=== PATIENT | male | born 1955 | race Caucasian/White ===

== ENCOUNTER 2019-01-07 13:47 | Inpatient (IN) ==
--- NOTE | 2019-01-07 14:52 | Emergency Department Note ---
ED Disposition Clinical Impression: Diverticulitis large intestine, Diarrhea Disposition: Admitted as Observation Condition on Discharge: Fair Referrals: Provider,Referral, [Primary Care Provider] - Time of Disposition: 15:54 - Critical Care Critical Care Time: No Attestation: On , the high probability of a clinically significant, sudden or life threatening deterioration of the following system(s) required my full and direct attention, intervention and personal management. The time I documented below is in addition to time spent performing reported procedures but includes the following listed in this critical care notation. Medical Decision Making - Medical Records Medical records reviewed: Yes: I reviewed the patient's medical records. - Viktor Inquiry Pt receiving controlled substance: No Viktor was queried for this patient: No Vital Signs: 01/07/19 13:47 01/07/19 14:26 01/07/19 15:00 Temperature 103.0 F H 103.0 F H Temperature Source Rectal Rectal Pulse Rate [Right Brachial] 120 H 120 H Respiratory Rate 18 16 Blood Pressure [Right Arm] 134/88 135/74 Blood Pressure Mean [Right Arm] 103 94 Blood Pressure Source [Right Arm] Automatic Cuff Automatic Cuff Blood Pressure Position [Right Arm] Sitting Supine 02 Sat by Pulse Oximetry 99 99 93 L Oxygen Delivery Method Room Air Room Air Room Air 01/07/19 15:48 Temperature Temperature Source Pulse Rate [Right Brachial] 124 H Respiratory Rate Blood Pressure [Right Arm] 154/83 H Blood Pressure Mean [Right Arm] 106 Blood Pressure Source [Right Arm] Automatic Cuff Blood Pressure Position [Right Arm] Supine 02 Sat by Pulse Oximetry 94 L Oxygen Delivery Method Room Air - Lab Data Lab results reviewed: Yes: I reviewed the patient's lab results. Lab Results 01/07/19 14:23: WBC 16.4 H, RBC 4.74, Hgb 14.1, Hct 43.8, MCV 92.4, MCH 29.8, MCHC 32.2, RDW 14.4, Plt Count 737 H, MPV 6.9 L, Neut % (Auto) 77.9, Lymph % (Auto) 13.4, [place] % (Auto) 7.6, Eos % (Auto) 0.7, Baso % (Auto) 0.4, Neut # (Auto) 12.7 H, Lymph # (Auto) 2.2, [place] # (Auto) 1.3 H, Eos # (Auto) 0.1, Baso # (Auto) 0.1, Total Counted 100, Neutrophils % (Manual) 71, Band Neutrophils % 4.0, Lymphocytes % (Manual) 17, Monocytes % (Manual) 7, Eosinophils % (Manual) 1, Platelet Estimate Moderate increase, Hypochromasia 1+ 01/07/19 14:23: Sodium 138, Potassium 3.0 L, Chloride 101, Carbon Dioxide 23, Anion Gap 17.0 H, BUN 22 H, Creatinine 1.13, Estimated Creat Clear 117, Estimated GFR 65, Est GFR ( Amer) 79, Glucose 116 H, Calcium 9.0, Total Bilirubin 1.0, AST 29, ALT 32, Alkaline Phosphatase 96, Total Creatine Kinase 149, Troponin I < 0.02, Total Protein 7.2, Albumin 2.1 L, Globulin 5.1 H, Albumin/Globulin Ratio 0.4 L, Amylase 41, Lipase 221 01/07/19 14:23: B-Natriuretic Peptide 54 01/07/19 14:23: Lactate 1.8 01/07/19 14:23: Urine Color Yellow, Urine Appearance Clear, Urine pH 6.5, Ur Specific [place] 1.015, Urine Protein 1+, Urine Glucose (UA) Negative, Urine Ketones Trace, Urine Blood Negative, Urine Nitrate Negative, Urine Bilirubin Negative, Urine Urobilinogen 2.0, Ur Leukocyte Esterase Negative, Urine RBC Occasional, Urine WBC Occasional, Ur Squamous Epith Cells None, Urine Bacteria Trace Result diagrams: 01/07/19 14:23 01/07/19 14:23 Orders (Tests/Meds): ED MEDICATIONS Generic Name Dose Route Start Last Admin Trade Name Nicole PRN Reason Stop Dose Admin Metronidazole 500 mg in 100 mls @ 100 mls/hr 01/07/19 16:00 01/07/19 16:04 Flagyl 500mg/100ml Ivpb IV 01/21/19 15:59 100 mls/hr Q8H NEHEMIAS Administration Protocol Piperacillin Sod/Tazobactam 100 mls @ 200 mls/hr 01/07/19 16:00 Sod 4.5 gm/ Sodium Chloride IV 01/21/19 15:59 Q8H NEHEMIAS Protocol ORDERS Category Date Time Status Blood Culture Stat Micro 01/07/19 14:23 Received General Adult HPI - General Chief complaint: Weakness Stated complaint: weakness Time Seen by Provider: 01/07/19 13:50 Mode of Arrival: EMS Source of Information: Patient, EMS Limitations: No Limitations Description of Symptoms (Recalled from ER Triage Doc. by RN): Pt was found by a friend laying on his couch. EMS reports apparently he has been on the couch for approx a week. Pt is covered in liquid stool. Legs are candace, swollen. Botttom is candace, scrotum is candace and discolored. Pt is A&O and can answer questions, advises he has been sick for a while - History of Present Illness HPI narrative: c/o abdominal pain for weeks, diarrhea excessive for two weeks. Too weak to stand, found lying on couch with stool and urine soaked clothes. Skin is markedly broken down in buttocks, perineum,scrotum. Patient complains of abdominal pain - Related Data Home Medications Medication Instructions Recorded Confirmed No Known Home Medications 11/21/17 01/07/19 Allergies Allergy/AdvReac Type Severity Reaction Status Date / Time No Known Allergies Allergy Verified 11/21/17 09:42 [facility] History - Hepatitis A Screen Drug use history?: No High risk sexual behaviors?: No History of sexually transmitted infection?: No Currently employed?: No Childcare worker?: No Do you have indoor plumbing?: Yes Do you have electricity?: Yes Attestation statement:: This patient has been screened for Hepatitis A risk factors. I have reviewed the patient's past medical history: Yes Medical History: Reports:: Diabetes Mellitus Type 2 Denies:: Diabetes Mellitus Type 1 - Social History Smoking Status: Never smoker Alcohol Intake: never Alcohol Intake Frequency:: holidays/special occasions only ROS Obtained: Yes All systems reviewed & no additional complaints - Constitutional Constitutional: Reports fever(s) - Cardiovascular Cardiovascular: Denies chest pain, Denies chest pain at rest, Denies diaphoresis - Respiratory Respiratory: No system reviewed and no additional complaints, except as docu, No chest congestion, No dyspnea, No dyspnea on exertion - Gastrointestinal Gastrointestingal: Reports: abdominal pain, diarrhea - Genitourinary Male Genitourinary: Reports difficulty with ejaculations, Reports hematuria - Musculoskeletal Musculoskeletal: Reports muscle weakness, Reports muscle aches, Reports numbness - Integumentary/Breasts Skin/Breast: Reports redness, Reports skin pain, Reports wounds - Neurologic Neurologic: Denies headache(s), Reports weakness - Hematologic/Lymphatic Henatologic/Lymphatic: Denies easy bleeding, Denies easy bruising Physical Exam - General General appearance: alert, obese, other (febrile, covered in stool) - Head Head exam: atraumatic - Eye Eye exam: Present: normal appearance, PERRL, EOMI - Neck Neck exam: Present: normal inspection, full ROM, trachea midline. Absent: meningismus, lymphadenopathy - Chest Chest inspection: Present: normal inspection, symmetric chest wall rise. Absent: tenderness - Respiratory Respiratory exam: Present: normal lung sounds bilaterally. Absent: respiratory distress - Cardiovascular Cardiovascular exam: Present: regular rate, normal rhythm. Absent: JVD - Abdominal Exam Abdominal exam: Present: soft, tenderness, guarding Abdominal tenderness: Present: LLQ - Back Exam Back exam: Absent: normal inspection - Neurological Exam Neurological exam: Present: alert, oriented X3 - Skin Skin exam: Present: other (severe breakdown of scrotal skin, perineal skin, buttocks ..covered in stool). Absent: warm, dry, intact
[2019-01-07 14:59] LABS: Alanine Aminotransferase 32 U/L (12-78); Albumin Level 2.1 gm/dL (3.4-5.0); Albumin/Globulin Ratio 0.4 (1.1-1.8); Alkaline Phosphatase 96 U/L (46-116); Amylase 41 U/L (25-115); Aspartate Amino Transferase 29 U/L (15-37); Blood Urea Nitrogen 22 mg/dL (7-18); Carbon Dioxide 23 mmol/L (21.0-32.0); Chloride 101 mmol/L (98-107); Creatine Kinase 149 U/L (39-308); Globulin 5.1 gm/dl (1.3-3.2); Glucose 116 mg/dL (74-106); Sodium 138 mmol/L (136-145); Total Protein,Serum 7.2 gm/dL (6.4-8.2)
[2019-01-07 15:10] LABS: Hematocrit 43.8 % (42.0-52.0); Hemoglobin 14.1 g/dL (14.1-18.0); Mean Corpuscular HGB Conc 32.2 g/dL (31.8-35.4); Mean Corpuscular Volume 92.4 fl (80-94); Mean Platelet Volume 6.9 fl (7.4-10.4); Red Blood Count 4.74 M/mm3 (4.60-6.20); Red Cell Distribution Width 14.4 % (11.5-17.5); White Blood Count 16.4 K/mm3 (4.8-10.8)
[2019-01-07 15:11] LABS: Basophils # 0.1 K/mm3 (0-0.2); Basophils % 0.4 % (0.1-2.0); Eosinophils # 0.1 K/mm3 (0.0-0.4); Eosinophils % 0.7 % (0.1-12.0); Lymphocytes # 2.2 K/mm3 (0.7-4.5); Lymphocytes % 13.4 % (10-50); Monocytes # 1.3 K/mm3 (0.1-1.0); Monocytes % 7.6 % (1.7-9.3); Neutrophils # 12.7 K/mm3 (1.8-7.8); Neutrophils % 77.9 % (37.0-80.0)
[2019-01-07 15:12] LABS: Platelet Count 737 K/mm3 (142-424)
[2019-01-07 15:25] LABS: Eosinophils % 1 % (0-3); Hypochromasia 1+; Lymphocytes % 17 % (10-50); Monocytes % 7 % (2-9); Neutrophils % 71 % (42-76); Total Cells Counted 100
[2019-01-07 15:47] LABS: Microscopic, Urine URINE MICROSCOPIC (MICROSCOPIC)
[2019-01-07 15:48] LABS: Appearance,Urine CLEAR (Clear); Blood, Urine Negative (Negative); Color,Urine YELLOW (Yellow); Glucose,Urine (UA) Negative (Negative); Ketones,Urine TRACE (Negative); Leukocyte Esterase,Urine Negative (Negative); PH,Urine 6.5 (5.0-8.5); Protein,Urine 1+ (Negative); Specific Gravity, Urine 1.015 (1.005-1.030)
[2019-01-07 15:54] LABS: Bilirubin,Urine Negative (Negative)
[2019-01-07 15:55] LABS: Bacteria,Urine Trace /lpf; RBC,Urine Occasional #/hpf (0-3); WBC,Urine Occasional #/hpf (0-3)
--- NOTE | 2019-01-07 18:15 | History & Physical Report ---
*Admission Date: 01/07/19 *Chief complaint: 6 weeks of diarrhea *History of present illness: 63-year-old white male with history of diabetes but no recent medical care or medications over the past several years, who was brought to the emergency department by EMS after being called because of concerns about the patient's 86-year-old mother and the patient who were both unable to care for themselves. The patient himself reports 6 weeks of diarrhea with incontinence of stools and being unable to stand up over the past couple of weeks. EMS found him covered in fecal material, and it took approximately 1-1/2 hours of work with 3 paramedics to extricate him from his couch and get him suitably clean to to ride in the ambulance to the hospital. In the hospital emergency department he was found to have fever, leukocytosis, evidence of scrotal cellulitis, significant skin breakdown around his rectum and scrotum, and was found to have evidence of diverticulitis with abdominal tenderness on physical exam confirmed by CT scan. Patient is placed on IV fluids, potassium replacement therapy for hypokalemia, broad-spectrum antibiotics and admitted to hospital. Of note the patient's mother was emergently admitted to a local long-term care facility. [facility] History I have reviewed the patient's past medical history: Yes Medical History: Reports:: Diabetes Mellitus Type 2, Hypertension Denies:: Cancer, Diabetes Mellitus Type 1, MRSA *Have you ever received a pneumonia vaccine?: No *Have you received a flu vaccine this season?: No Comment:: Morbid obesity, medical noncompliance Laterality Cases: Bilateral: Tonsillectomy Other Surgeries: Yes: Colonoscopy, Hernia Repair Amputation: No - *Social History Educational Level: Completed College Smoking Status: Never smoker Alcohol Intake: never Alcohol Intake Frequency:: holidays/special occasions only *Occupational Status:: retired Housing: house Household Members: family *Travel in the last 8 weeks: None - Psychiatric History Expresses thoughts of harming self/others: None Suicide Plan Description: No Plan Family Hx:: Unable to obtain, No significant family history Review of Systems - Review of Systems Review of systems:: pertinent systems reviewed and negative unless documented below - Constitutional Reports anorexia, Reports body ache(s), Reports fatigue, Reports fever(s) - Eyes Denies blind spots, Denies dry eyes - ENT Reports poor balance, Reports dizziness, Reports dry mouth, Reports difficulty swallowing, Denies abnormal hearing - *Cardiovascular Reports lightheadedness, Denies chest pain, Denies excessive sweating, Denies shortness of breath - *Respiratory Denies change in phlegm color, Denies chest congestion, Denies shortness of breath with activity, Denies excessive phlegm production - *Gastrointestinal Reports abdominal pain, Reports change in stools, Reports excessive passing of gas, Reports incontinent of stools, Reports nausea, Reports vomiting, Denies black, tarry stools - *Genitourinary Denies difficulty urinating - *Musculoskeletal Reports abnormal walking, Reports joint swelling, Reports limited joint movement, Reports muscle weakness, Reports body aches - Integumentary/Breasts Denies acne, Denies change in skin color - *Neurologic Reports numbness, Reports weakness, Denies headache(s) Meds Home Medications Medication Instructions Recorded Confirmed Type No Known Home Medications 11/21/17 01/07/19 History Allergies Allergy/AdvReac Type Severity Reaction Status Date / Time No Known Allergies Allergy Verified 11/21/17 09:42 Exam Vital signs and Labs for Last 24 Hours: Temp Pulse Resp BP Pulse Ox 98.1 F 116 H 16 121/71 94 L 01/07/19 17:53 01/07/19 17:53 01/07/19 17:53 01/07/19 17:53 01/07/19 17:53 Laboratory Results - last 24 hr 01/07/19 14:23: WBC 16.4 H, RBC 4.74, Hgb 14.1, Hct 43.8, MCV 92.4, MCH 29.8, MCHC 32.2, RDW 14.4, Plt Count 737 H, MPV 6.9 L, Neut % (Auto) 77.9, Lymph % (Auto) 13.4, [place] % (Auto) 7.6, Eos % (Auto) 0.7, Baso % (Auto) 0.4, Neut # (Auto) 12.7 H, Lymph # (Auto) 2.2, [place] # (Auto) 1.3 H, Eos # (Auto) 0.1, Baso # (Auto) 0.1, Total Counted 100, Neutrophils % (Manual) 71, Band Neutrophils % 4.0, Lymphocytes % (Manual) 17, Monocytes % (Manual) 7, Eosinophils % (Manual) 1, Platelet Estimate Moderate increase, Hypochromasia 1+ 01/07/19 14:23: Sodium 138, Potassium 3.0 L, Chloride 101, Carbon Dioxide 23, Anion Gap 17.0 H, BUN 22 H, Creatinine 1.13, Estimated Creat Clear 117, Estimated GFR 65, Est GFR ( Amer) 79, Glucose 116 H, Calcium 9.0, Total Bilirubin 1.0, AST 29, ALT 32, Alkaline Phosphatase 96, Total Creatine Kinase 149, Troponin I < 0.02, Total Protein 7.2, Albumin 2.1 L, Globulin 5.1 H, Albumin/Globulin Ratio 0.4 L, Amylase 41, Lipase 221 01/07/19 14:23: B-Natriuretic Peptide 54 01/07/19 14:23: Lactate 1.8 01/07/19 14:23: Urine Color Yellow, Urine Appearance Clear, Urine pH 6.5, Ur Specific [place] 1.015, Urine Protein 1+, Urine Glucose (UA) Negative, Urine Ketones Trace, Urine Blood Negative, Urine Nitrate Negative, Urine Bilirubin Negative, Urine Urobilinogen 2.0, Ur Leukocyte Esterase Negative, Urine RBC Occasional, Urine WBC Occasional, Ur Squamous Epith Cells None, Urine Bacteria Trace I & O for Last 24 hours: Intake & Output 01/05/19 01/06/19 01/07/19 01/08/19 11:59 11:59 11:59 11:59 Intake Total 23.333 / 23.333 Balance 23.333 / 23.333 Weight 285 lb 1 oz Narrative: Patient is extremely disheveled, poor dental hygiene. Unkempt cruz and hair, covered with the residual of liquid/now dried fecal material on his hands, around his scrotum and buttocks in spite of multiple baths per ER and nursing staff. Scrotal tissue is macerated and irritated. Bauer catheter is draining clear light yellow urine. He does not appear to have yeast around his scrotum. Anterior lung zamorano are clear, heart rate regular, no murmurs. Abdomen soft but tender in the left lower quadrant with no rebound or guarding. No skin rash noted. Distal extremities are warm and well-perfused, he has 1+ pedal edema. Neurologically he is very weak but able to move extremities well with 4/5 strength, cranial nerves are intact. Assessment and Plan (1) Hypokalemia Current visit: Yes Status: Acute Category: Medical Code(s): E87.6 - Hypokalemia Replace with p.o. potassium, follow tomorrow (2) Diabetes mellitus type 2 in obese Current visit: Yes Status: Acute Category: Medical Code(s): E11.69 - Type 2 diabetes mellitus with other specified complication; E66.9 - Obesity, unspecified Glucose levels in ER fairly controlled, start low intensity sliding scale as needed. (3) Morbid obesity Current visit: Yes Status: Acute Category: Medical Code(s): E66.01 - Morbid (severe) obesity due to excess calories Complicates all aspects of his care. (4) Physical deconditioning Current visit: Yes Status: Acute Category: Medical Code(s): R53.81 - Other malaise PT.OT consult... may need LTC placement (5) Diarrhea Current visit: Yes Status: Acute Qualifiers: Diarrhea type: infectious Qualified Code(s): A09 - Infectious gastroenteritis and colitis, unspecified Category: Medical Code(s): R19.7 - Diarrhea, unspecified Start abx for diverticulitis. Follow up clinically. (6) Diverticulitis large intestine Current visit: Yes Status: Acute Category: Medical Code(s): K57.32 - Diverticulitis of large intestine without perforation or abscess without bleeding IV abx. (7) Scrotal abscess Current visit: No Status: Acute Category: Medical Code(s): N49.2 - Inflammatory disorders of scrotum IV abx - hygiene. CT negative for actual abscess.
[2019-01-08 07:44] LABS: Basophils % 0.2 % (0.1-2.0); Eosinophils % 0.3 % (0.1-12.0); Hematocrit 40.4 % (42.0-52.0); Hemoglobin 13.2 g/dL (14.1-18.0); Lymphocytes # 0.8 K/mm3 (0.7-4.5); Lymphocytes % 6.6 % (10-50); Mean Corpuscular HGB Conc 32.6 g/dL (31.8-35.4); Mean Corpuscular Volume 94.6 fl (80-94); Monocytes # 0.4 K/mm3 (0.1-1.0); Monocytes % 3.6 % (1.7-9.3); Neutrophils # 10.7 K/mm3 (1.8-7.8); Neutrophils % 89.3 % (37.0-80.0); Platelet Count 640 K/mm3 (142-424); Red Blood Count 4.27 M/mm3 (4.60-6.20); Red Cell Distribution Width 14.5 % (11.5-17.5)
[2019-01-08 07:45] LABS: Anion Gap 16.9 mEq/L (5-15); Calcium 8.7 mg/dL (8.5-10.1)
--- NOTE | 2019-01-08 08:22 | Progress Note ---
Internal Medicine - PN: Subj *Date: 01/08/19 *Time: 08:20 Interval history: Patient overall feels somewhat better. Continues to have some gas and is incontinent of liquid feces. Exam Vital signs and Labs for Last 24 Hours: Temp Pulse Resp BP Pulse Ox 97.7 F 84 16 116/72 93 L 01/08/19 07:46 01/08/19 07:46 01/08/19 07:46 01/08/19 07:46 01/08/19 07:46 Laboratory Results - last 24 hr 01/07/19 14:23: WBC 16.4 H, RBC 4.74, Hgb 14.1, Hct 43.8, MCV 92.4, MCH 29.8, MCHC 32.2, RDW 14.4, Plt Count 737 H, MPV 6.9 L, Neut % (Auto) 77.9, Lymph % (Auto) 13.4, [place] % (Auto) 7.6, Eos % (Auto) 0.7, Baso % (Auto) 0.4, Neut # (Auto) 12.7 H, Lymph # (Auto) 2.2, [place] # (Auto) 1.3 H, Eos # (Auto) 0.1, Baso # (Auto) 0.1, Total Counted 100, Neutrophils % (Manual) 71, Band Neutrophils % 4.0, Lymphocytes % (Manual) 17, Monocytes % (Manual) 7, Eosinophils % (Manual) 1, Platelet Estimate Moderate increase, Hypochromasia 1+ 01/07/19 14:23: Sodium 138, Potassium 3.0 L, Chloride 101, Carbon Dioxide 23, Anion Gap 17.0 H, BUN 22 H, Creatinine 1.13, Estimated Creat Clear 117, Estimated GFR 65, Est GFR ( Amer) 79, Glucose 116 H, Calcium 9.0, Total Bilirubin 1.0, AST 29, ALT 32, Alkaline Phosphatase 96, Total Creatine Kinase 149, Troponin I < 0.02, Total Protein 7.2, Albumin 2.1 L, Globulin 5.1 H, Albumin/Globulin Ratio 0.4 L, Amylase 41, Lipase 221 01/07/19 14:23: B-Natriuretic Peptide 54 01/07/19 14:23: Lactate 1.8 01/07/19 14:23: Urine Color Yellow, Urine Appearance Clear, Urine pH 6.5, Ur Specific [place] 1.015, Urine Protein 1+, Urine Glucose (UA) Negative, Urine Ketones Trace, Urine Blood Negative, Urine Nitrate Negative, Urine Bilirubin Negative, Urine Urobilinogen 2.0, Ur Leukocyte Esterase Negative, Urine RBC Occasional, Urine WBC Occasional, Ur Squamous Epith Cells None, Urine Bacteria Trace 01/07/19 21:20: POC Glucose 111 H 01/08/19 06:01: POC Glucose 121 H 01/08/19 07:03: WBC 12.0 H D, RBC 4.27 L, Hgb 13.2 L, Hct 40.4 L, MCV 94.6 H, MCH 30.9, MCHC 32.6, RDW 14.5, Plt Count 640 H, MPV 7.0 L, Neut % (Auto) 89.3 H, Lymph % (Auto) 6.6 L, [place] % (Auto) 3.6, Eos % (Auto) 0.3, Baso % (Auto) 0.2, Neut # (Auto) 10.7 H, Lymph # (Auto) 0.8, [place] # (Auto) 0.4, Eos # (Auto) 0.0, Baso # (Auto) 0.0 01/08/19 07:03: Sodium 139, Potassium 2.9 L*, Chloride 103, Carbon Dioxide 22, Anion Gap 16.9 H, BUN 21 H, Creatinine 1.16, Estimated Creat Clear 121, Estimated GFR 63, Est GFR ( Amer) 76, Glucose 137 H, Calcium 8.7 I & O for Last 24 hours: Intake & Output 01/05/19 01/06/19 01/07/19 01/08/19 11:59 11:59 11:59 11:59 Intake Total 1596.333 / 1596.333 Output Total 800 / 800 Balance 796.333 / 796.333 Weight 296 lb 5 oz Narrative: Patient is awake, talkative. Appears better hydrated. Lungs are clear. Heart rate regular. Abdomen remains slightly tender in the lower quadrants but improving. Nursing is done a very nice job of cleaning up the patient after his really incredibly deplorable conditions were found at his home. Oropharynx moist, poor hygiene again noted, however oral tissues are clear. No edema in the extremities. Able to move extremities well but is weak. Assessment and Plan (1) Hypokalemia Current visit: Yes Status: Acute Category: Medical Code(s): E87.6 - Hypokalemia Increased dose of oral potassium today. Monitor carefully. (2) Diabetes mellitus type 2 in obese Current visit: Yes Status: Acute Category: Medical Code(s): E11.69 - Type 2 diabetes mellitus with other specified complication; E66.9 - Obesity, unspecified (3) Morbid obesity Current visit: Yes Status: Acute Category: Medical Code(s): E66.01 - Morbid (severe) obesity due to excess calories Complicates all aspects of his care. (4) Physical deconditioning Current visit: Yes Status: Acute Category: Medical Code(s): R53.81 - Other malaise Will need PT/OT evaluation. I anticipate that he will need long-term care (5) Diarrhea Current visit: Yes Status: Acute Qualifiers: Diarrhea type: infectious Qualified Code(s): A09 - Infectious gastroenteritis and colitis, unspecified Category: Medical Code(s): R19.7 - Diarrhea, unspecified Obtain PCR specimen (6) Diverticulitis large intestine Current visit: Yes Status: Acute Category: Medical Code(s): K57.32 - Diverticulitis of large intestine without perforation or abscess without bleeding Clinically improving. Continue current antibiotic therapy (7) Scrotal abscess Current visit: No Status: Acute Category: Medical Code(s): N49.2 - Inflammatory disorders of scrotum
[2019-01-08 08:54] LABS: Lymphocytes % 11 % (10-50); Monocytes % 4 % (2-9); Neutrophils % 83 % (42-76); RBC Morphology Normal; Total Cells Counted 100
--- NOTE | 2019-01-08 13:25 | Pharmacy Consult Notes ---
[facility] Pharmacy VTE Monitoring - Patient Demographics Admission date: 01/07/19 Report Date: 01/08/19 Time: 13:24 Allergies/Adverse Reactions: Patient Allergies No Known Allergies Allergy (Verified 11/21/17 09:42) Height: 1.83 m Weight: 134.405 kg Patient Problems: Current Active Problems Diverticulitis large intestine (Acute) Diarrhea (Acute) Hypokalemia (Acute) Diabetes mellitus type 2 in obese (Acute) Morbid obesity (Acute) Physical deconditioning (Acute) - VTE Risk Labs: VTE Related Lab Results Hgb 13.2 g/dL (14.1-18.0) L 01/08/19 07:03 Hct 40.4 % (42.0-52.0) L 01/08/19 07:03 Plt Count 640 K/mm3 (142-424) H 01/08/19 07:03 BUN 21 mg/dL (7-18) H 01/08/19 07:03 Creatinine 1.16 mg/dL (0.70-1.30) 01/08/19 07:03 Estimated Creat Clear 121 mL/min (50-200) 01/08/19 07:03 VTE Score: 3 VTE Risk Level: Low Risk - Prophylaxis VTE Prophylaxis Ordered?: Yes Types of VTE Prophylaxis: TEDS Knee High Location of Applied Device: Bilateral Lower Extremeties - VTE Diagnosis Confirmed Treatment or plan recommended: Continue Current Treatment
[2019-01-09 06:16] LABS: Basophils % 0.2 % (0.1-2.0); Eosinophils % 0.1 % (0.1-12.0); Hematocrit 38.5 % (42.0-52.0); Lymphocytes # 1.2 K/mm3 (0.7-4.5); Lymphocytes % 7.6 % (10-50); Mean Corpuscular HGB Conc 31.3 g/dL (31.8-35.4); Mean Corpuscular Volume 93.9 fl (80-94); Mean Platelet Volume 7.7 fl (7.4-10.4); Monocytes # 0.9 K/mm3 (0.1-1.0); Monocytes % 5.8 % (1.7-9.3); Neutrophils # 12.9 K/mm3 (1.8-7.8); Neutrophils % 86.3 % (37.0-80.0); Platelet Count 595 K/mm3 (142-424); Red Cell Distribution Width 14.5 % (11.5-17.5); White Blood Count 14.9 K/mm3 (4.8-10.8)
[2019-01-09 06:31] LABS: Anion Gap 17.1 mEq/L (5-15); Calcium 8.5 mg/dL (8.5-10.1)
[2019-01-09 06:57] LABS: Lymphocytes % 13 % (10-50); Neutrophils % 74 % (42-76); RBC Morphology Normal; Total Cells Counted 100
--- NOTE | 2019-01-09 08:05 | Progress Note ---
Internal Medicine - PN: Subj *Date: 01/09/19 *Time: 08:02 Interval history: Patient feels somewhat better, has tolerated a low residue diet, continues to have frequent liquid stools. PCR from diarrhea shows E. coli. Blood and urine cultures are still pending. Exam Vital signs and Labs for Last 24 Hours: Temp Pulse Resp BP Pulse Ox 98.3 F 74 18 152/91 H 95 01/09/19 07:32 01/09/19 07:32 01/09/19 07:32 01/09/19 07:32 01/09/19 07:32 Laboratory Results - last 24 hr 01/08/19 07:03: Total Counted 100, Neutrophils % (Manual) 83 H, Band Neutrophils % 2.0, Lymphocytes % (Manual) 11, Monocytes % (Manual) 4, Platelet Estimate Moderate increase, RBC Morphology Normal 01/08/19 09:23: POC Glucose 132 H 01/08/19 11:20: POC Glucose 139 H 01/08/19 16:12: POC Glucose 162 H 01/08/19 20:13: POC Glucose 236 H 01/08/19 22:00: Stl Aeromonas (PCR) Not detected, Stl C. cayetanensis PCR Not detected, Stool Rotavirus (PCR) Not detected, Stl Adenov F 40/41 PCR Not detected, Stool Astrovirus (PCR) Not detected, Stool Campylobacter PCR Not detected, Stl C.difficile Tox PCR Not detected, Stool Cryptosporidium PCR Not detected, Stl E.coli Shiga Tox PCR Not detected, Stool E coli O157 PCR Not detected, Stl Enterotoxigenic E PCR Not detected, Stool EPEC (PCR) Detected A, Stool EAEC (PCR) Not detected, Stl E. histolytica PCR Not detected, Stool Giardia Lamblia PCR Not detected, Stool Salmonella PCR Not detected, Stool Sapovirus (PCR) Not detected, Stl P. shigelloides PCR Not detected, Stl Shigella/EIEC PCR Not detected, St Y.enterocolitica PCR Not detected, Stool Vibrio (PCR) Not detected, Stl Vibrio cholerae PCR Not detected, Stl Norovirus GI/GII PCR Not detected 01/09/19 05:25: WBC 14.9 H, RBC 4.10 L, Hgb 12.0 L, Hct 38.5 L, MCV 93.9, MCH 29.4, MCHC 31.3 L, RDW 14.5, Plt Count 595 H, MPV 7.7, Neut % (Auto) 86.3 H, Lymph % (Auto) 7.6 L, [place] % (Auto) 5.8, Eos % (Auto) 0.1, Baso % (Auto) 0.2, Neut # (Auto) 12.9 H, Lymph # (Auto) 1.2, [place] # (Auto) 0.9, Eos # (Auto) 0.0, Baso # (Auto) 0.0, Total Counted 100, Neutrophils % (Manual) 74, Band Neutrophils % 13.0 H, Lymphocytes % (Manual) 13, Platelet Estimate Slight increase, RBC Morphology Normal 01/09/19 05:25: Sodium 141, Potassium 4.1 D, Chloride 108 H, Carbon Dioxide 20 L, Anion Gap 17.1 H, BUN 23 H, Creatinine 0.77 D, Estimated Creat Clear 140, Estimated GFR 101, Est GFR ( Amer) 123 D, Glucose 183 H D, Calcium 8.5 01/09/19 06:47: POC Glucose 165 H I & O for Last 24 hours: Intake & Output 01/06/19 01/07/19 01/08/19 01/09/19 11:59 11:59 11:59 11:59 Intake Total 1696.333 / 7301.188 0305 / 1213 Output Total 800 / 800 950 / 950 Balance 896.333 / 896.333 263 / 263 Weight 296 lb 5 oz 296 lb 3 oz Narrative: Patient is awake, hygiene continues to improve with excellent efforts from our nursing staff. Oropharynx is more moist, clear. Poor dentition noted. No JVD. Lungs are clear, heart rate regular. Abdomen is obese, softer, less tender. Bauer catheter draining appropriately. Scrotal sac looks less erythematous and macerated. Distal perfusion is good, neurologic exam intact. Assessment and Plan (1) Hypokalemia Current visit: Yes Status: Acute Category: Medical Code(s): E87.6 - Hypokalemia Improving, reduce dose of potassium today. (2) Diabetes mellitus type 2 in obese Current visit: Yes Status: Acute Category: Medical Code(s): E11.69 - Type 2 diabetes mellitus with other specified complication; E66.9 - Obesity, unspecified Fairly euglycemic. Continue to use sliding scale insulin as needed (3) Morbid obesity Current visit: Yes Status: Acute Category: Medical Code(s): E66.01 - Morbid (severe) obesity due to excess calories (4) Physical deconditioning Current visit: Yes Status: Acute Category: Medical Code(s): R53.81 - Other malaise PT OT evaluation pending (5) Diarrhea Current visit: Yes Status: Acute Qualifiers: Diarrhea type: infectious Qualified Code(s): A09 - Infectious gastroenteritis and colitis, unspecified Category: Medical Code(s): R19.7 - Diarrhea, unspecified E. coli as causative agent. P.o. levofloxacin given his significant comorbidities and p.o. probiotic today. (6) Diverticulitis large intestine Current visit: Yes Status: Acute Category: Medical Code(s): K57.32 - Diverticulitis of large intestine without perforation or abscess without bleeding Clinically improving. Continue IV antibiotics. (7) Scrotal abscess Current visit: No Status: Acute Category: Medical Code(s): N49.2 - Inflammatory disorders of scrotum
[2019-01-10 06:15] LABS: Albumin Level 1.9 gm/dL (3.4-5.0); Albumin/Globulin Ratio 0.5 (1.1-1.8); Anion Gap 17.2 mEq/L (5-15); Bilirubin,Total 0.4 mg/dL (0.2-1.0); Calcium 8.6 mg/dL (8.5-10.1); Total Protein,Serum 5.9 gm/dL (6.4-8.2)
[2019-01-10 06:19] LABS: Hematocrit 40.5 % (42.0-52.0); Hemoglobin 12.8 g/dL (14.1-18.0); Mean Corpuscular Volume 94.1 fl (80-94); White Blood Count 13.7 K/mm3 (4.8-10.8)
[2019-01-10 06:20] LABS: Basophils % 0.1 % (0.1-2.0); Eosinophils % 0.1 % (0.1-12.0); Lymphocytes % 13.8 % (10-50); Mean Corpuscular HGB Conc 31.6 g/dL (31.8-35.4); Mean Platelet Volume 7.2 fl (7.4-10.4); Neutrophils # 10.9 K/mm3 (1.8-7.8); Neutrophils % 79.9 % (37.0-80.0); Platelet Count 638 K/mm3 (142-424); Red Cell Distribution Width 14.7 % (11.5-17.5)
[2019-01-10 06:21] LABS: Lymphocytes # 1.9 K/mm3 (0.7-4.5); Monocytes # 0.8 K/mm3 (0.1-1.0)
--- NOTE | 2019-01-10 08:58 | Progress Note ---
Internal Medicine - PN: Subj *Date: 01/10/19 *Time: 08:57 Interval history: Patient feels somewhat better. Continues to have diarrhea but it is less frequent and he is able to make it to the bedside commode instead of being incontinent. Has eaten a good breakfast this morning. Exam Vital signs and Labs for Last 24 Hours: Temp Pulse Resp BP Pulse Ox 97.8 F 106 H 19 128/77 94 L 01/10/19 08:00 01/10/19 08:00 01/10/19 08:00 01/10/19 08:00 01/10/19 08:00 Laboratory Results - last 24 hr 01/09/19 10:39: POC Glucose 166 H 01/09/19 16:08: POC Glucose 147 H 01/09/19 19:58: POC Glucose 134 H 01/10/19 05:37: WBC 13.7 H, RBC 4.30 L, Hgb 12.8 L, Hct 40.5 L, MCV 94.1 H, MCH 29.7, MCHC 31.6 L, RDW 14.7, Plt Count 638 H, MPV 7.2 L, Neut % (Auto) 79.9, Lymph % (Auto) 13.8, [place] % (Auto) 6.0, Eos % (Auto) 0.1, Baso % (Auto) 0.1, Neut # (Auto) 10.9 H, Lymph # (Auto) 1.9, [place] # (Auto) 0.8, Eos # (Auto) 0.0, Baso # (Auto) 0.0 01/10/19 05:37: Sodium 141, Potassium 3.2 L D, Chloride 109 H, Carbon Dioxide 18 L, Anion Gap 17.2 H, BUN 25 H, Creatinine 1.23 D, Estimated Creat Clear 114, Estimated GFR 59, Est GFR ( Amer) 71 D, Glucose 127 H, Calcium 8.6, Total Bilirubin 0.4, AST 19 D, ALT 23 D, Alkaline Phosphatase 76, Total Protein 5.9 L, Albumin 1.9 L, Globulin 4.0 H, Albumin/Globulin Ratio 0.5 L 01/10/19 05:50: POC Glucose 102 I & O for Last 24 hours: Intake & Output 01/07/19 01/08/19 01/09/19 01/10/19 11:59 11:59 11:59 11:59 Intake Total 1696.333 / 7786.004 6249 / 1313 3480 / 3480 Output Total 800 / 800 950 / 950 500 / 500 Balance 896.333 / 896.333 363 / 363 2980 / 2980 Weight 296 lb 5 oz 296 lb 3 oz 296 lb 2.986 oz Microbiology Reports for the Last 24 Hours: Microbiology 01/09/19 16:48 Catheter Tip - Other Catheter Tip Culture - Preliminary 01/07/19 14:23 Blood Blood Culture - Preliminary NO GROWTH AFTER 48 HOURS 01/07/19 14:23 Blood Blood Culture - Preliminary NO GROWTH AFTER 48 HOURS Narrative: Lungs have good air movement. Heart rate regular. Abdomen obese, soft, much less tender. Perfusion is unchanged. Patient's catheter is out and he is able to urinate well. Assessment and Plan (1) Hypokalemia Current visit: Yes Status: Acute Category: Medical Code(s): E87.6 - Hypokalemia (2) Diabetes mellitus type 2 in obese Current visit: Yes Status: Acute Category: Medical Code(s): E11.69 - Type 2 diabetes mellitus with other specified complication; E66.9 - Obesity, unspecified (3) Morbid obesity Current visit: Yes Status: Acute Category: Medical Code(s): E66.01 - Morbid (severe) obesity due to excess calories (4) Physical deconditioning Current visit: Yes Status: Acute Category: Medical Code(s): R53.81 - Other malaise (5) Diarrhea Current visit: Yes Status: Acute Qualifiers: Diarrhea type: infectious Qualified Code(s): A09 - Infectious gastroenteritis and colitis, unspecified Category: Medical Code(s): R19.7 - Diarrhea, unspecified (6) Diverticulitis large intestine Current visit: Yes Status: Acute Category: Medical Code(s): K57.32 - Diverticulitis of large intestine without perforation or abscess without bleeding (7) Scrotal abscess Current visit: No Status: Acute Category: Medical Code(s): N49.2 - Inflammatory disorders of scrotum - Assessment and plan all Dx Assessment and Plan for all problems:: Overall conditions are improving. Should diarrhea continue to improve I believe patient can be transferred to long-term care for ongoing rehabilitation and completion of his antibiotic therapy, await final culture results today.
[2019-01-11 06:05] LABS: Anion Gap 17.2 mEq/L (5-15); Calcium 8.4 mg/dL (8.5-10.1)
[2019-01-11 06:15] LABS: Hematocrit 40.4 % (42.0-52.0); Hemoglobin 12.9 g/dL (14.1-18.0); Mean Corpuscular Volume 94.6 fl (80-94); Mean Platelet Volume 6.8 fl (7.4-10.4); Neutrophils % 79.9 % (37.0-80.0); Platelet Count 602 K/mm3 (142-424); Red Blood Count 4.27 M/mm3 (4.60-6.20); Red Cell Distribution Width 14.8 % (11.5-17.5); White Blood Count 12.2 K/mm3 (4.8-10.8)
[2019-01-11 06:16] LABS: Basophils % 0.2 % (0.1-2.0); Eosinophils # 0.3 K/mm3 (0.0-0.4); Eosinophils % 2.1 % (0.1-12.0); Lymphocytes # 1.3 K/mm3 (0.7-4.5); Monocytes # 0.7 K/mm3 (0.1-1.0); Monocytes % 5.4 % (1.7-9.3); Neutrophils # 9.7 K/mm3 (1.8-7.8)
--- NOTE | 2019-01-11 06:57 | Progress Note ---
Internal Medicine - PN: Subj *Date: 01/11/19 *Time: 08:25 Interval history: Patient did well overnight. Tolerating p.o. intake. Denies any fevers, nausea vomiting. Continues to have multiple loose stools a day. Remains weak. Denies chest pain, shortness of breath. Questions morning about placement. Patient seems to be improving clinically. Discussed how he has been accepted by a nursing facility but would need to stay for 30 days. He is unsure about this. Discussed that his options would be when clinically stable going to a fci or back home. He is well does not want to go back home as he feels he needs continued care. We will continue to have case management discussed the situation with him. Exam Vital signs and Labs for Last 24 Hours: Temp Pulse Resp BP Pulse Ox 97.8 F 78 18 139/76 91 L 01/11/19 04:00 01/11/19 04:00 01/11/19 04:00 01/11/19 04:00 01/11/19 04:00 Laboratory Results - last 24 hr 01/10/19 05:50: POC Glucose 102 01/10/19 11:18: POC Glucose 110 01/10/19 17:37: POC Glucose 106 01/10/19 20:28: POC Glucose 91 01/11/19 05:26: POC Glucose 93 01/11/19 05:48: WBC 12.2 H, RBC 4.27 L, Hgb 12.9 L, Hct 40.4 L, MCV 94.6 H, MCH 30.3, MCHC 32.0, RDW 14.8, Plt Count 602 H, MPV 6.8 L, Neut % (Auto) 79.9, Lymph % (Auto) 11.0, [place] % (Auto) 5.4, Eos % (Auto) 2.1, Baso % (Auto) 0.2, Neut # (Auto) 9.7 H, Lymph # (Auto) 1.3, [place] # (Auto) 0.7, Eos # (Auto) 0.3, Baso # (Auto) 0.0 01/11/19 05:48: Sodium 143, Potassium 3.2 L, Chloride 111 H, Carbon Dioxide 18 L , Anion Gap 17.2 H, BUN 17 D, Creatinine 1.07, Estimated Creat Clear 131, Estimated GFR 69, Est GFR ( Amer) 84, Glucose 102, Calcium 8.4 L I & O for Last 24 hours: Intake & Output 01/08/19 01/09/19 01/10/19 01/11/19 23:59 23:59 23:59 23:59 Intake Total 2373 / 2373 813 / 813 4340 / 4340 3547 / 3547 Output Total 1750 / 1750 500 / 500 250 / 250 Balance 623 / 623 313 / 313 4090 / 4090 3547 / 3547 Weight 134.405 kg 134.348 kg 134.348 kg 134.348 kg Microbiology Reports for the Last 24 Hours: Microbiology 01/07/19 14:23 Urine,Catheterized Urine Culture - Preliminary NO GROWTH AFTER 24 HOURS Narrative: Morbidly obese male in no acute distress in bedside chair. Lungs have good air movement, no wheeze or rhonchi Heart rate regular, no murmur Abdomen obese, soft, minimally tender, active bowel sounds. Perfusion is unchanged Assessment and Plan (1) Hypokalemia Current visit: Yes Status: Acute Category: Medical Code(s): E87.6 - Hypokalemia (2) Diabetes mellitus type 2 in obese Current visit: Yes Status: Acute Category: Medical Code(s): E11.69 - Type 2 diabetes mellitus with other specified complication; E66.9 - Obesity, unspecified (3) Morbid obesity Current visit: Yes Status: Acute Category: Medical Code(s): E66.01 - Morbid (severe) obesity due to excess calories (4) Physical deconditioning Current visit: Yes Status: Acute Category: Medical Code(s): R53.81 - Other malaise (5) Diarrhea Current visit: Yes Status: Acute Qualifiers: Diarrhea type: infectious Qualified Code(s): A09 - Infectious gastroenteritis and colitis, unspecified Category: Medical Code(s): R19.7 - Diarrhea, unspecified (6) Diverticulitis large intestine Current visit: Yes Status: Acute Category: Medical Code(s): K57.32 - Diverticulitis of large intestine without perforation or abscess without bleeding (7) Scrotal abscess Current visit: No Status: Acute Category: Medical Code(s): N49.2 - Inflammatory disorders of scrotum - Assessment and plan all Dx Assessment and Plan for all problems:: Continue to improve clinically. Decreased stool however still having loose stools. Anticipate extended need for recovery. Discussed placement options with patient today. Currently deciding between placement in nursing facility for continued long-term care versus discharge back home in the setting from which he came, unappealing to patient. Continues to require inpatient management however anticipate discharge in the coming days.
--- NOTE | 2019-01-11 15:18 | Progress Note ---
Internal Medicine - PN: Subj *Date: 01/11/19 *Time: 15:18 Exam Vital signs and Labs for Last 24 Hours: Temp Pulse Resp BP Pulse Ox 98.6 F 86 20 131/83 96 01/11/19 08:00 01/11/19 08:00 01/11/19 08:00 01/11/19 08:00 01/11/19 08:00 Laboratory Results - last 24 hr 01/10/19 17:37: POC Glucose 106 01/10/19 20:28: POC Glucose 91 01/11/19 05:26: POC Glucose 93 01/11/19 05:48: WBC 12.2 H, RBC 4.27 L, Hgb 12.9 L, Hct 40.4 L, MCV 94.6 H, MCH 30.3, MCHC 32.0, RDW 14.8, Plt Count 602 H, MPV 6.8 L, Neut % (Auto) 79.9, Lymph % (Auto) 11.0, [place] % (Auto) 5.4, Eos % (Auto) 2.1, Baso % (Auto) 0.2, Neut # (Auto) 9.7 H, Lymph # (Auto) 1.3, [place] # (Auto) 0.7, Eos # (Auto) 0.3, Baso # (Auto) 0.0 01/11/19 05:48: Sodium 143, Potassium 3.2 L, Chloride 111 H, Carbon Dioxide 18 L , Anion Gap 17.2 H, BUN 17 D, Creatinine 1.07, Estimated Creat Clear 131, Estimated GFR 69, Est GFR ( Amer) 84, Glucose 102, Calcium 8.4 L I & O for Last 24 hours: Intake & Output 01/08/19 01/09/19 01/10/19 01/11/19 23:59 23:59 23:59 23:59 Intake Total 2373 / 2373 813 / 813 4340 / 4340 4127 / 4127 Output Total 1750 / 1750 500 / 500 250 / 250 300 / 300 Balance 623 / 623 313 / 313 4090 / 4090 3827 / 3827 Weight 134.405 kg 134.348 kg 134.348 kg 134.348 kg Microbiology Reports for the Last 24 Hours: Microbiology 01/07/19 14:23 Urine,Catheterized Urine Culture - Preliminary NO GROWTH AFTER 24 HOURS Assessment and Plan (1) Hypokalemia Current visit: Yes Status: Acute Category: Medical Code(s): E87.6 - Hypokalemia (2) Diabetes mellitus type 2 in obese Current visit: Yes Status: Acute Category: Medical Code(s): E11.69 - Type 2 diabetes mellitus with other specified complication; E66.9 - Obesity, unspecified (3) Morbid obesity Current visit: Yes Status: Acute Category: Medical Code(s): E66.01 - Morbid (severe) obesity due to excess calories (4) Physical deconditioning Current visit: Yes Status: Acute Category: Medical Code(s): R53.81 - Other malaise (5) Diarrhea Current visit: Yes Status: Acute Qualifiers: Diarrhea type: infectious Qualified Code(s): A09 - Infectious gastroenteritis and colitis, unspecified Category: Medical Code(s): R19.7 - Diarrhea, unspecified (6) Diverticulitis large intestine Current visit: Yes Status: Acute Category: Medical Code(s): K57.32 - Diverticulitis of large intestine without perforation or abscess without bleeding (7) Scrotal abscess Current visit: No Status: Acute Category: Medical Code(s): N49.2 - Inflammatory disorders of scrotum The patient's infection will respond to the chosen ABx?: Yes Is the patient receiving the right drug, dose, and route?: Yes Could a more targeted ABx be ordered?: No
--- NOTE | 2019-01-12 08:15 | Discharge Summary ---
General - General Admission date:: 01/07/19 Discharge date: 01/12/19 HPI HPI: 63-year-old white male with history of diabetes but no recent medical care or medications over the past several years, who was brought to the emergency department by EMS after being called because of concerns about the patient's 86-year-old mother and the patient who were both unable to care for themselves. The patient himself reports 6 weeks of diarrhea with incontinence of stools and being unable to stand up over the past couple of weeks. EMS found him covered in fecal material, and it took approximately 1-1/2 hours of work with 3 paramedics to extricate him from his couch and get him suitably clean to to ride in the ambulance to the hospital. In the hospital emergency department he was found to have fever, leukocytosis, evidence of scrotal cellulitis, significant skin breakdown around his rectum and scrotum, and was found to have evidence of diverticulitis with abdominal tenderness on physical exam confirmed by CT scan. Patient is placed on IV fluids, potassium replacement therapy for hypokalemia, broad-spectrum antibiotics and admitted to hospital. Of note the patient's mother was emergently admitted to a local long-term care facility. Hospital Course Hospital Course: Patient was admitted to hospital. Patient was subjected to panculturing. So far blood cultures, urine culture and catheter tip cultures have been negative. Patient had significant diarrhea. This continued throughout his hospital stay. He was found to have an E. coli species on PCR testing. Because of his significant dehydration and comorbidities this was treated with p.o. Levaquin. This caused some slowing of the diarrhea but he continued to have watery stools and because of his bulk and diminished physical activity was occasionally incontinent of stool. However his overall condition improved. PT and OT evaluation was undertaken. They recommended skilled care physical therapy for deconditioning issues. The patient was somewhat reluctant but finally agreed to do this given his lack of self-care activities and his social isolation issues with a lack of family at home to take care of him. This morning patient is improved. Mentally alert. He is having some loose stools but is much improved. Plan will be to transfer to skilled care facility for PT/OT. He will need antidiarrheal agents. He will need ongoing skin hygiene issues and dietary consultation for his morbid obesity. He has a history of diabetes but his sugars been well controlled here, and I will not start him on oral diabetic agents. Patient was noted to have significant diverticulitis on CT scanning. He will continue with oral antibiotic agents to finish a 10-day course. Objective Vital signs: Temp Pulse Resp BP Pulse Ox 98.8 F 71 24 129/78 96 01/12/19 04:00 01/12/19 04:00 01/12/19 04:00 01/12/19 04:00 01/12/19 04:00 Narrative: Patient is alert. Oriented x3. ENT exam is clear. He has no JVD. He has no oral thrush. Heart rate regular without murmurs. Anterior lung zamorano are clear, posterior zamorano are clear. His exam is somewhat compromised because of his morbid obesity. His abdomen however, is soft and nontender. He is able to get to the bedside commode under his own power. Patient has stasis related edema but no evidence of skin breakdown currently. His scrotal area which was significantly macerated from his admission condition has improved. Bauer catheter has been removed and he is urinating well without problems. Results Labs on day of discharge: Labs from last 24 hours 01/12/19 01/11/19 01/11/19 06:08 21:06 17:00 POC Glucose 92 91 88 01/11/19 11:38 POC Glucose 85 Preliminary micro results at discharge 01/09/19 16:48 Catheter Tip Culture - Preliminary Catheter Tip - Other 01/07/19 14:23 Blood Culture - Preliminary Blood NO GROWTH AFTER 48 HOURS 01/07/19 14:23 Blood Culture - Preliminary Blood NO GROWTH AFTER 48 HOURS DS: Diagnosis - Discharge Diagnosis (1) Hypokalemia Status: Resolved (2) Diabetes mellitus type 2 in obese Status: Chronic (3) Morbid obesity Status: Chronic (4) Physical deconditioning Status: Chronic (5) Diarrhea Status: Chronic (6) Diverticulitis large intestine Status: Acute (7) Scrotal abscess Status: Acute Discharge Plan - Patient Discharge Instructions ACTIVITY: Continue current activity DIET: continue same diet Patient Instructions: Diarrhea, Escherichia coli Infection, Low-Fiber/Low-Residue Diet, DI for Diverticulitis, DI for Hypokalemia - Follow up Plan Disposition: [facility] Home Medications: Home Medications Medication Instructions Recorded Confirmed Type No Known Home Medications 11/21/17 01/07/19 History Diphenoxylate HCl/Atropine 5 mg PO Q6HP PRN #21 tab 01/12/19 Rx [Lomotil 2.5mg tablet] levoFLOXacin [Levaquin 500mg 500 mg PO DAILY #7 tab 01/12/19 Rx tab] metroNIDAZOLE [Flagyl 500mg 500 mg PO TID #21 tab 01/12/19 Rx Tablet] Prescriptions/Medication Reconciliation: New Acetaminophen [Acetaminophen 325mg tab] 650 mg PO Q4HP PRN tablet PRN Reason: As Needed For Fever Or Pain L. Acidophilus/Strept/LA P-Alvaro [Mandy-Q Probiotic Capsule] 1 cap PO DAILY capsule Insulin Lispro [HumaLOG 100 units/mL 3mL vial (SSI)] 0 unit SQ ACHS ml Potassium Chloride [Micro-K 10mEq cap] 20 meq PO BID capsule.er metroNIDAZOLE [Flagyl 500mg Tablet] 500 mg PO TID #21 tab levoFLOXacin [Levaquin 500mg tab] 500 mg PO DAILY #7 tab Diphenoxylate HCl/Atropine [Lomotil 2.5mg tablet] 5 mg PO Q6HP PRN #21 tab PRN Reason: Diarrhea No Action No Known Home Medications - Problem Reconciliation Problems Reviewed?: Yes
--- NOTE | 2019-01-12 10:40 | Progress Note ---
Internal Medicine - PN: Subj *Date: 01/12/19 *Time: 10:40 Exam Vital signs and Labs for Last 24 Hours: Temp Pulse Resp BP Pulse Ox 98.2 F 76 19 112/35 L 93 L 01/12/19 08:00 01/12/19 08:00 01/12/19 08:00 01/12/19 08:00 01/12/19 08:00 Laboratory Results - last 24 hr 01/11/19 11:38: POC Glucose 85 01/11/19 17:00: POC Glucose 88 01/11/19 21:06: POC Glucose 91 01/12/19 06:08: POC Glucose 92 I & O for Last 24 hours: Intake & Output 01/09/19 01/10/19 01/11/19 01/12/19 23:59 23:59 23:59 23:59 Intake Total 813 / 813 4340 / 4340 4807 / 6153 2808 / 2808 Output Total 500 / 500 250 / 250 500 / 500 350 / 350 Balance 313 / 313 4090 / 4090 4307 / 5653 2458 / 2458 Weight 134.348 kg 134.348 kg 134.348 kg 134.303 kg Microbiology Reports for the Last 24 Hours: Microbiology 01/07/19 14:23 Urine,Catheterized Urine Culture - Final NO GROWTH AFTER 48 HOURS Assessment and Plan (1) Hypokalemia Current visit: Yes Status: Resolved Category: Medical Code(s): E87.6 - Hypokalemia (2) Diabetes mellitus type 2 in obese Current visit: Yes Status: Chronic Category: Medical Code(s): E11.69 - Type 2 diabetes mellitus with other specified complication; E66.9 - Obesity, unspecified (3) Morbid obesity Current visit: Yes Status: Chronic Category: Medical Code(s): E66.01 - Morbid (severe) obesity due to excess calories (4) Physical deconditioning Current visit: Yes Status: Chronic Category: Medical Code(s): R53.81 - Other malaise (5) Diarrhea Current visit: Yes Status: Chronic Qualifiers: Diarrhea type: infectious Qualified Code(s): A09 - Infectious gastroenteritis and colitis, unspecified Category: Medical Code(s): R19.7 - Diarrhea, unspecified (6) Diverticulitis large intestine Current visit: Yes Status: Acute Category: Medical Code(s): K57.32 - Diverticulitis of large intestine without perforation or abscess without bleeding (7) Scrotal abscess Current visit: No Status: Acute Category: Medical Code(s): N49.2 - Inflammatory disorders of scrotum The patient's infection will respond to the chosen ABx?: Yes Is the patient receiving the right drug, dose, and route?: Yes Could a more targeted ABx be ordered?: No
== END 2019-01-12 14:38 | DRG 392 ==
LOC: ER 13:47 → 2ND 16:12
PROVIDERS: ADMIT Internal Medicine Adolescent Medicine; ATTEND Internal Medicine Adolescent Medicine
CPT/HCPCS: 36415; 71250; 74176; 80048; 80053; 81001; 82150; 82550; 82962; 83605; 83690; 83880; 84484; 85007; 85025; 87040; 87086; 87507; 96365; 97116; 97161; 97166; 97535; 99285; J2405; J2543

== ENCOUNTER → 2019-06-09 09:10 | Outpatient (CLI) | payer MEDICARE, MEDICAID, SELFPAY ==
[2019-06-09 09:44] LABS: Hematocrit 40.9 % (42.0-52.0); Hemoglobin 12.2 g/dL (14.1-18.0)
== END ==
PROVIDERS: Visit Provider Emergency Medicine
DX: D64.9 Anemia, unspecified (principal)
CPT/HCPCS: 85014; 85018